=== PATIENT | female | born 1935 | race African-American/Black ===

== ENCOUNTER 2018-10-30 21:02 | Inpatient (IN) | payer OTHER ==
[~2018-10-30] VITALS: Ht 170.2 cm; Wt 42.8 kg
--- NOTE | ~2018-10-30 | HC ---
[facility] [place] [address] CONSULTATION Name: JAS GARCIA Room #: 205- ADM IN M.R.#: [id number] Admission: 10/30/18 ������������������ Attend Phys: Jesús Valentine MD Discharge: ������������������ Date of : 34 Report #: [id number] THIS REPORT FOR: //name// CC: Jesús ROTH unknown DATE OF SERVICE: 11/01/2018 HISTORY OF PRESENT ILLNESS: The patient is an 83-year-old -Venezuelan female with a history of hypertension, hyperlipidemia, COPD, who was admitted with an apparent episode of syncope. She had an elevated troponin. No aggressive intervention was warranted and Cardiology did not feel that it was reflecting a non-ST elevation NV. The patient had episodes of severe tachycardia, alternating with bradycardia. They did not feel that was tachybrady syndrome. She was treated for hypoxic acute respiratory failure. CT angio was without PE. She was noted to have generalized weakness and debilitation and we are seeing her in rehabilitation medicine consultation. PAST MEDICAL HISTORY: Includes hypertension, hypothyroidism, GERD, COPD, iron deficiency anemia, vitamin D deficiency and she has a history of dementia, age related. MEDICATIONS: Please see the full medication listing. HABITS: Former smoker, quit greater than a year ago. No history of alcohol abuse. SOCIAL HISTORY: Lives with daughter. Daughter reports 24-hour, 7-day a week assistance in the home. I am uncertain what gait aid the patient utilized premorbidly. REVIEW OF SYSTEMS: Did not offer any current complaints of chest pain, shortness of breath or abdominal discomfort. PHYSICAL EXAMINATION: GENERAL: An 83-year-old rather slender -Venezuelan female in no obvious distress. VITAL SIGNS: Last recorded temperature 97, pulse 69, respirations 18, blood pressure 109/76. NEUROLOGIC: She is alert, follows basic 1 step commands. Facies are symmetric. Functional range of motion of both upper extremities. Strength is grade 4-/5. DTRs are trace to 1. Lower extremities, no focal calf swelling, functional range of motion, strength is grade 4-/5. She is min assist with sit to stand with gait 120 feet, min assist with a front-wheeled walker. ASSESSMENT: An 83-year-old -[place]an female with the following problems: [address] [address] CONSULTATION Name: JAS GARCIA Room #: [facility] IN M.R.#: [id number] Admission: 10/30/18 ������������������ Attend Phys: Jesús Valentine MD Discharge: ������������������ Date of : 34 Report #: [id number] 1. Medical complexity with generalized debilitation. 2. Syncopal episode. 3. Mildly elevated troponin. 4. Acute hypoxic respiratory failure. 5. Chronic obstructive pulmonary disease. 6. Hypertension. 7. Hyperlipidemia. 8. Gastroesophageal reflux disease. 9. Hypothyroidism. PLAN: We are assessing candidacy for [address] [place] [address] Acute Inpatient Rehabilitation. We will be glad to follow along with you regarding her rehab therapy needs. ��������������������������������������������� ���������������������������������������� By: ��������������������������������������������� [id number] Maco Cruz MD /nt
[2018-10-30 21:04] VITALS: BP 136/82
[2018-10-30 21:30] LABS: ABSOLUTE NEUTROPHILS 5.7 thou/uL (1.4-8.2); BASOPHILS 0.7 % (0.0-2.0); EOSINOPHILS 0.3 % (0.0-3.0); HEMATOCRIT 31.5 % (37.0-47.0); HEMOGLOBIN 9.9 gm/dL (12.0-15.0); LYMPHOCYTES 9.8 % (24.0-44.0); MCH 24.1 pg (26.0-34.0); MCHC 31.3 g/dL (28.0-37.0); MONOCYTES 9.2 % (1.0-8.0); PLATELET COUNT 311 thou/uL (150-400); RDW 16.5 % (10.5-14.5); WBC 7.2 thou/uL (4.0-11.0)
[2018-10-30 21:32] LABS: CALCIUM 9.2 mg/dL (8.5-10.1); CREATININE 1.1 mg/dL (0.6-1.0); POTASSIUM 3.2 mmol/L (3.5-5.1)
[2018-10-30 21:53] LABS: TROPONIN-I 0.08 ng/mL (<0.06)
[2018-10-30] MEDS ORDERED: ASPIR 8181 MG PO (23:36)
[2018-10-30] MEDS ORDERED: BREO ELLIPTA 11 EACH INH (23:38)
[2018-10-30] MEDS ORDERED: VENTOLIN HFA 1818 GM INH (23:38)
[2018-10-30] MEDS ORDERED: CELEXA10 MG PO (23:38)
[2018-10-30] MEDS ORDERED: NORVASC5 MG PO (23:39)
[2018-10-30] MEDS ORDERED: LIPITOR10 MG PO (23:39)
[2018-10-31] VITALS (9 sets, daily range): BP systolic 98–158; BP diastolic 72–94
--- NOTE | 2018-10-31 02:37 | NUR ---
PT ADMITTED FROM ED AT APPROX 1AM. VSS. PT ALERT AND ORIENTED TO SELF, PLACE AND SITUATION. FAMILY (DAUGHTER/DPOA) AT BEDSIDE. ALL CONSENTS SIGNED INCLUDING RF INTERFERENCE EDUCATION SHEET. ADMISSION ASSESSMENT DONE, TELE STRIP FILED; PT WAS SR WITH SOME PVCs. ENRIQUE SCHOFIELD VISITED WITH PT ORDERED ONETIME DOSE OF KCL PER 3.2 K VALUE. ASPIRIN ALSO ADMINISTERED TO PT AT THIS TIME SINCE IT WASNT GIVEN IN THE ER. OTHER ADMISSION ORDERS RECIVED AND IMPLEMENTED. PT IS STABLE, SLEEPING AT THE MOMENT. NO COMPLAINTS OF RESPIRATORY DISTRESS OR PAIN. PT ON 2L NC WITH SATS OF 99%. PT IS VERY PLEASANT. WILL CONTINUE TO MONITOR PER POC.
[2018-10-31 03:17] LABS: MCH 24.6 pg (26.0-34.0); MCHC 32.2 g/dL (28.0-37.0); MCV 76.4 fL (80.0-100.0); RBC 3.66 mil/uL (4.20-5.00); RDW 16.6 % (10.5-14.5); WBC 5.8 thou/uL (4.0-11.0)
[2018-10-31 03:40] LABS: CALCIUM 8.9 mg/dL (8.5-10.1); CREATININE 0.7 mg/dL (0.6-1.0); POTASSIUM 3.1 mmol/L (3.5-5.1); TROPONIN-I 0.08 ng/mL (<0.06)
--- NOTE | 2018-10-31 09:36 | EKG ---
[address] [place] [address] ELECTROCARDIOGRAM REPORT Name: JAS GARCIA Room #: 205-P ADM IN M.R.#: [id number] ������������������ Admission: 10/30/18 ������������������ Attend Phys: Jesús Valentine MD Discharge: ������������������ Date of : 34 Report #: [id number] ����������������������������������������������������������������� [id number] THIS REPORT FOR: //name// [facility] ED Test Date: 2018-10-30 Test Time: 21:54:51 Pat Name: JAS GARCIA Department: Room: [facility] Gender: F Nuclear Medicine Chief Technologist: [email or web address] : 1935 Requested By: Juan Carlos Burnette Order Number: [id number] MD: Garry Jacobo Measurements Intervals [place] Rate: 72 P: 71 WI: 159 QRS: 17 QRSD: 85 T: 78 QT: 437 QTc: 479 Interpretive Statements Sinus rhythm Multiple ventricular premature complexes Left atrial enlargement Borderline low voltage, extremity leads Abnormal R-wave progression, early transition No previous ECG available for comparison Electronically Signed On 10-31-2018 9:36:13 CDT by Garry Jacobo [email or web address] ��������������������������������������������� <ELECTRONICALLY SIGNED> ���������������������������������������� By: Garry Jacobo MD ��������������������������������������������� 10/31/18 0936 53 53 Garry Jacobo MD /SIL
[2018-10-31] MEDS ORDERED: SYNTHROID88 MCG PO (13:30)
[2018-10-31] MEDS ORDERED: IRON325 PO (13:32)
--- NOTE | 2018-10-31 15:14 | NUR ---
PT A&OX TO SELF AND SITUATION, AMBULATES WITH ASSIST X 1. IV INTACT IN L FA AND R AC. O2 AT 2 L PER NC. DENIES ANY PAIN NO SYNCOPE NOTED TODAY. CT OF HEAD COMPLETEDTHIS AM. FAMILY AT BEDSIDE EARLIER. WILL CONT POC.
--- NOTE | 2018-10-31 17:30 | NUR ---
PT HAD EPISODES OF BRADYCARDIA AT [phone] THIS AM AND AGAIN AT 1300 TODAY. HR RATE INCREASED TO 123 WHILE UP WITH PT. DR. MCKEON NOTIFIED, CARDIAC CONSULT AND LABS ORDERED.
[2018-11-01 02:43] LABS: HEMATOCRIT 29.8 % (37.0-47.0); HEMOGLOBIN 9.4 gm/dL (12.0-15.0); MCH 24.3 pg (26.0-34.0); MCHC 31.6 g/dL (28.0-37.0); MCV 76.8 fL (80.0-100.0); RBC 3.88 mil/uL (4.20-5.00); RDW 16.9 % (10.5-14.5); WBC 4.6 thou/uL (4.0-11.0)
[2018-11-01 03:12] LABS: ALBUMIN 3.7 g/dL (3.4-5.0); CREATININE 0.7 mg/dL (0.6-1.0); MAGNESIUM 1.5 mg/dL (1.8-2.4); POTASSIUM 3.8 mmol/L (3.5-5.1); TOTAL BILIRUBIN 0.5 mg/dL (<0.1-1.0)
[2018-11-01 04:45] VITALS: BP 116/81
--- NOTE | 2018-11-01 04:47 | NUR ---
ASSUMED CARE AT 1900. PT AO X2. DENIES CHEST PAIN. NAUSEA OR VOMITING OR SOB. OTHER ASSESSMENTS DOCUMENTED. WILL CONTINUE WITH POC.
[2018-11-01 08:00] VITALS: BP 171/97
--- NOTE | 2018-11-01 09:32 | 2DMMODE ---
[facility] [address] [place] [address] 2 D/M-MODE ECHOCARDIOGRAM Name: JAS GARCIA Room #: 205-P ADM IN M.R.#: [id number] ������������� Admission: 10/30/18 ������������� Attend Phys: Jesús Valentine MD Discharge: ��� ������������� ��� Date of : 34 Date of Service: 11/01/18 0932 �� Report #: [id number] �������� ��������������������������������������������[id number] THIS REPORT FOR: //name// APPROVED REPORT Study performed: 11/01/2018 07:54:45 EXAM: Comprehensive 2D, Doppler, and color-flow Echocardiogram Patient Location: Bedside Room #: [facility] Status: routine BSA: 1.47 HR: 65 bpm BP: 116/81 mmHg Rhythm: NSR Other Information Study Quality: Adequate/low parasternal window Indications Syncope 2D Dimensions RVDd: 34.82 mm IVSd: 9.09 (7-11mm) LVOT Diam: 18.07 (18-24mm) LVDd: 30.82 mm PWd: 9.50 (7-11mm) Ascending Ao: 26.84 (22-36mm) LVDs: 19.89 (25-40mm) Aortic Root: 27.00 mm IVC: 17.00 mm Volumes Left Atrial Volume (Systole) Single Plane 4CH: 23.64 mL Single Plane 2CH: 26.86 mL LA ESV Index: 19.00 mL/m2 Aortic Valve AoV Peak Robb.: 1.07 m/s AO Peak Gr.: 4.62 mmHg LVOT Max P.31 mmHg LVOT Max V: 0.91 m/s CHLOÉ Vmax: 2.17 cm2 Mitral Valve E/A Ratio: 0.7 MV Decel. Time: 419.27 ms MV E Max Robb.: 0.66 m/s [facility] [address] [place] [address] 2 D/M-MODE ECHOCARDIOGRAM Name: JAS GARCIA Room #: [address] [place] [address] IN ..#: [id number] ������������� Admission: 10/30/18 ������������� Attend Phys: Jesús Valentine MD Discharge: ��� ������������� ��� Date of : 34 Date of Service: 11/01/18 0932 �� Report #: [id number] �������� ��������������������������������������������[id number] MV A Robb.: 0.92 m/s MV PHT: 121.59 ms IVRT: 147.64 ms Pulmonary Valve PV Peak Robb.: 0.86 m/s PV Peak Gr.: 2.94 mmHg Tricuspid Valve TR Peak Orbb.: 3.60 m/s RAP Estimate: 5.00 mmHg TR Peak Gr.: 51.71 mmHg PA Pressure: 57.00 mmHg Left Ventricle The left ventricle is normal size. There is normal left ventricular wall thickness. The left ventricular systolic function is normal. The left ventricular ejection fraction is within the normal range. LVEF is 60-65%. Mild diastolic dysfunction is present (impaired relaxation pattern). Right Ventricle The right ventricle is normal size. The right ventricular systolic function is normal. Atria The left atrium size is normal. The right atrium size is normal. Aortic Valve The Aortic valve is sclerotic. No aortic regurgitation is present. There is no aortic valvular stenosis. Mitral Valve Mild mitral annular calcification. Mitral valve leaflets are mildly thickened. There is no mitral valve regurgitation noted. No evidence of mitral valve stenosis. Tricuspid Valve The tricuspid valve is normal in structure. Moderate to severe tricuspid regurgitation. PAP is estimated at 57 mmHg. Pulmonic Valve Pulmonic valve is not well visualized. Great Vessels The aortic root is normal in size. Aortic arch is not well visualized. IVC is normal in size and collapses >50% with [facility] [address] [place] [address] 2 D/M-MODE ECHOCARDIOGRAM Name: JAS GARCIA Room #: [address] [place] [address] IN M.R.#: [id number] ������������� Admission: 10/30/18 ������������� Attend Phys: Jesús Valentine MD Discharge: ��� ������������� ��� Date of : 34 Date of Service: 11/01/18 0932 �� Report #: [id number] �������� ��������������������������������������������[id number] inspiration. Pericardium There is no pericardial effusion. <Conclusion> The left ventricle is normal size. There is normal left ventricular wall thickness. The left ventricular systolic function is normal. Mild diastolic dysfunction is present (impaired relaxation pattern). The right ventricle is normal size. The left atrium size is normal. The Aortic valve is sclerotic. Mild mitral annular calcification. Mitral valve leaflets are mildly thickened. Moderate to severe tricuspid regurgitation. PAP is estimated at 57 mmHg. ��������������������������������������������� <ELECTRONICALLY SIGNED> ���������������������������������������� By: Garry Jacobo MD ��������������������������������������������� 11/01/18931 1 1 Garry Jacobo MD /INF
[2018-11-01 12:00] VITALS: BP 109/76
[2018-11-01] MEDS ORDERED: ACETAMINOPHEN325 M1 PO (12:02)
[2018-11-01] MEDS ORDERED: K-DUR 20 MEQ T20 MEQ PO (12:02)
--- NOTE | 2018-11-01 13:48 | NUR ---
met with patient and spoke with dtr. Patient resides at home with dtr. Dtr reports / supervision in home. patient has a walker and sometimes uses walker and other times does not. Dtr assists with adls of bathing and does cooking. Patient with hx of demetia. Discussed post acute care. Dtr reports patient has been at [facility] in past and agreeable for eval for skilled and also eval for acute rehab 5n.
[2018-11-01 16:00] VITALS: BP 111/67
[2018-11-01 20:15] VITALS: BP 119/69
--- NOTE | 2018-11-01 20:37 | NUR ---
PATIENT OREIENTED TO SELF AND LOCATION AND PLEASANT WITH MEMORY ISSUES. SPOKE WITH CHANDA ON PHONE WHOM PATIENT LIVES WITH AND ALSO SPOKE WITH SON WHO STOPPED BY BEDSIDE. PATIENT WALKED WITH PT IN HALLWAY AND IS BEING EVALUATED FOR THE REHAB UNIT OR POSSIBLY SNF. PATIENT ENJOYS DRINKING THE ENSURE BUT DOESN'T EAT MUCH OF HER FOOD TRAY.
[2018-11-02 04:45] VITALS: BP 151/93
--- NOTE | 2018-11-02 06:49 | NUR ---
patients care was assumed at shift change. patient was assessed and meds were passed. patient continued to refues the aide putting her to bed. with RN assist patient was refreshed and put into bed about 0100. patient did sleep the rest of the shift with no requests or events. hourly rounding was done. the bed is in a low and locked position.
[2018-11-02 07:56] VITALS: BP 141/91
--- NOTE | 2018-11-02 14:08 | NUR ---
patient accepted to [facility] and [facility] discussed with dtr options and she prefers 5n, updated 5N liason.
--- NOTE | 2018-11-02 15:10 | NUR ---
Assumed pt care at 7am.Pt in bed laert and orineted to self and person. Assessment completed.vss.Assisted pt with tray setup at breakfast.Pt refused breakfast and meds.Dtr called,she came and encouraged pt to take med but still refused.Dr Jacobo here,no new order.Dc order noted from Dr Valentine.Report off to Cherry kearney on rehab.At 1515,pt dc to rehab per wc accompanied by volunteer.
== END 2018-11-02 15:12 | DRG 189 ==
LOC: ER 21:02 → EROBS 23:13 → 2N 23:13 → ENTRNSPT 11-02 14:48 → EDTRNSPTSTS 11-02 14:50 → 2N 11-02 15:12
PROVIDERS: Emergency Medicine; Nurse Practitioner Family; ADMIT Internal Medicine
DX: J96.01 Acute respiratory failure with hypoxia (principal); E43 Unspecified severe protein-calorie malnutrition; Z68.1 Body mass index [BMI] 19.9 or less, adult; I10 Essential (primary) hypertension; E78.5 Hyperlipidemia, unspecified; J44.9 Chronic obstructive pulmonary disease, unspecified; R55 Syncope and collapse; F32.9 Major depressive disorder, single episode, unspecified; F03.90 Unspecified dementia, unspecified severity, without behavioral disturbance, psychotic disturbance, mood disturbance, and anxiety; E03.9 Hypothyroidism, unspecified; K21.9 Gastro-esophageal reflux disease without esophagitis; D50.9 Iron deficiency anemia, unspecified; Z66 Do not resuscitate; E83.42 Hypomagnesemia; I07.1 Rheumatic tricuspid insufficiency; Z79.899 Other long term (current) drug therapy; Z79.82 Long term (current) use of aspirin; Z87.891 Personal history of nicotine dependence
CPT/HCPCS: 10081

== ENCOUNTER 2018-11-02 13:23 | Inpatient (IN) | payer OTHER ==
[~2018-11-02] VITALS: Ht 177.8 cm; Wt 41.3 kg
[~2018-11-02 13:23] MED LIST: ACETAMINOPHEN325 M1 PO; ASPIR 8181 MG PO; BREO ELLIPTA 11 EACH INH; CELEXA10 MG PO; IRON325 PO; K-DUR 20 MEQ T20 MEQ PO; LIPITOR10 MG PO; NORVASC5 MG PO; SYNTHROID88 MCG PO; VENTOLIN HFA 1818 GM INH
[2018-11-02 15:20] VITALS: BP 131/78
[2018-11-02 20:06] VITALS: BP 120/87
[2018-11-03 05:41] LABS: HEMATOCRIT 28.9 % (37.0-47.0); HEMOGLOBIN 9.3 gm/dL (12.0-15.0); MCH 24.8 pg (26.0-34.0); MCHC 32.3 g/dL (28.0-37.0); MCV 76.6 fL (80.0-100.0); RBC 3.77 mil/uL (4.20-5.00); RDW 16.5 % (10.5-14.5); WBC 5.4 thou/uL (4.0-11.0)
[2018-11-03 05:49] LABS: CALCIUM 9.6 mg/dL (8.5-10.1); CREATININE 0.6 mg/dL (0.6-1.0); POTASSIUM 3.8 mmol/L (3.5-5.1)
[2018-11-03 08:28] VITALS: BP 115/83
[2018-11-03 11:03] VITALS: BP 115/83
[2018-11-03 20:32] VITALS: BP 113/76
[2018-11-04 09:06] VITALS: BP 141/80
[2018-11-04 09:07] VITALS: BP 89/61
[2018-11-04 09:09] VITALS: BP 93/69
[2018-11-04 19:52] VITALS: BP 96/72
[2018-11-05 06:48] LABS: HEMATOCRIT 30.3 % (37.0-47.0); HEMOGLOBIN 9.7 gm/dL (12.0-15.0); MCH 24.2 pg (26.0-34.0); MCHC 31.9 g/dL (28.0-37.0); MCV 75.9 fL (80.0-100.0); RBC 3.99 mil/uL (4.20-5.00); RDW 17.1 % (10.5-14.5); WBC 5.1 thou/uL (4.0-11.0)
[2018-11-05 07:30] VITALS: BP 138/89
[2018-11-05 19:15] LABS: URINE BILIRUBIN NEGATIVE (Negative); URINE BLOOD NEGATIVE (Negative); URINE CLARITY CLEAR; URINE COLOR YELLOW; URINE GLUCOSE-RANDOM* NEGATIVE (Negative); URINE KETONES TRACE (Negative); URINE NITRITE-REFLEX NEGATIVE (Negative); URINE PROTEIN (DIPSTICK) 1+ (Negative); URINE SPECIFIC GRAVITY 1.025 (1.005-1.035)
[2018-11-05 19:15] LABS: HEMATOCRIT 30.6 % (37.0-47.0); HEMOGLOBIN 9.8 gm/dL (12.0-15.0); MCH 24.5 pg (26.0-34.0); MCV 76.5 fL (80.0-100.0); RDW 17.3 % (10.5-14.5); WBC 6.2 thou/uL (4.0-11.0)
[2018-11-05 19:27] LABS: ALBUMIN 4.1 g/dL (3.4-5.0); CALCIUM 9.8 mg/dL (8.5-10.1); CREATININE 0.7 mg/dL (0.6-1.0); MAGNESIUM 1.8 mg/dL (1.8-2.4); POTASSIUM 4.1 mmol/L (3.5-5.1); TOTAL BILIRUBIN 0.3 mg/dL (<0.1-1.0); TOTAL PROTEIN 7.9 g/dL (6.4-8.2)
[2018-11-05 19:29] LABS: URINE LEUKOCYTES-REFLEX 2+ (Negative)
[2018-11-05 19:37] LABS: SQUAMOUS 0-3 Few /LPF (0-3)
[2018-11-05 19:38] LABS: BACTERIA-REFLEX 1-9 Few /HPF (None Seen); CRYSTALS None Seen /LPF (None Seen); HYALINE CASTS 0-3 Few /LPF (None Seen); URINE RBC None Seen /HPF (0-2)
[2018-11-05 21:08] VITALS: BP 94/59
[2018-11-06 07:55] VITALS: BP 122/68
[2018-11-06 19:13] VITALS: BP 91/70
[2018-11-07 08:15] VITALS: BP 144/86
[2018-11-07 19:22] VITALS: BP 134/74
[2018-11-08 08:00] VITALS: BP 131/80
--- NOTE | 2018-11-08 17:06 | PATH ---
[facility] [address] [place] [address] PATHOLOGY RPT PROCEDURE Name: LON BAILEY Room #: 514-P ADM IN M.R.#: [id number] ������������������ Admission: 11/02/18 ������������������ Date of : 34 Discharge: Report #: [id number] Path Case #: [id number] [facility] Accession Number: [id number] . 01 Material submitted: . stomach - GASTRIC BX R/O H. PYLORI . 01 Clinical history: . Pre-OP DX: Heme positive stool, anemia Post-OP DX: Gastritis, AVM . 02 Diagnosis: Gastric mucosa, gastric, rule out H. 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 - Negative for dysplasia. - Helicobacter pylori immunohistochemical stain performed showing numerous organisms (properly controlled). (IUV:pit 11/08/2018) QTP/11/08/2018 . 02 Electronically signed: . Ada Landaverde MD, Pathologist NPI- [id number] . 01 Gross description: . Received in formalin labeled "Lon Bailey, gastric BX," are multiple segments of ochoa soft tissue measuring 1.2 x 0.5 x 0.1 cm in aggregate dimensions. The specimen is filtered and entirely submitted in cassette A1. (TSD; 11/07/2018) TOB/TOB . 02 Pathologist provided ICD-10: K29.70, B96.81 . 02 CPT . 695781, G30402 Specimen Comment: A courtesy copy of this report has been sent to Specimen Comment: [phone]. Specimen Comment: Report sent to Performed at: [address] [id number] MD Devyn Tate MD Phone: [phone] Performed at: 02 [facility] [address] [place] [address] PATHOLOGY RPT PROCEDURE Name: LON BAILEY Room #: 514-P ADM IN ..#: [id number] ������������������ Admission: 11/02/18 ������������������ Date of : 34 Discharge: Report #: [id number] Path Case #: [id number] [address] [place] [id number] MD Ada Landaverde MD Phone: [phone]
[2018-11-08 19:58] VITALS: BP 111/78
[2018-11-09 10:33] VITALS: BP 111/68
[2018-11-09 19:15] VITALS: BP 122/74
[2018-11-10] MEDS ORDERED: PROTONIX 20 MG20 M1 PO (08:08)
[2018-11-10 09:11] VITALS: BP 102/79
[2018-11-10 09:17] VITALS: BP 102/79
[2018-11-10 10:32] VITALS: BP 102/79
--- NOTE | 2018-11-10 12:22 | H ---
[facility] [place] [address] HISTORY AND PHYSICAL Name: JAS GARCIA Room #: 514-P ADM IN M.R.#: [id number] Admission: 11/02/18 ������������������ Attend Phys: Maco Cruz MD Discharge: ������������������ Date of : 34 Report #: [id number] THIS REPORT FOR: //name// CC: Maco Cruz [facility] unknown DATE OF SERVICE: 11/02/2018 HISTORY AND PHYSICAL/POSTADMISSION PHYSICIAN EVALUATION HISTORY OF PRESENT ILLNESS: The patient is an 83-year-old -Thai female with history of hypertension, hyperlipidemia, COPD, originally admitted on 10/30/2018 with an apparent episode of syncope. She had an elevated troponin. No aggressive intervention was warranted and flash oven operator did not feel that it was reflecting a non-ST elevation MA. She did, however, have episodes of severe tachycardia alternating with bradycardia. They did not feel that was tachybrady syndrome. She was treated for hypoxic acute respiratory failure. CT angio was without PE. She is noted to have significant generalized weakness and functional decline from her premorbid status. She does have medical complexity as noted above. She has now been admitted for acute in-hospital inpatient rehabilitation. PAST MEDICAL HISTORY: Includes hypertension, hypothyroidism, GERD, COPD, iron deficiency anemia, vitamin D deficiency, history of dementia, age related. MEDICATIONS: Please see the full medication listing, this includes vitamins, herbals, and supplements per report. HABITS: Former smoker, quit greater than a year ago. No history of alcohol abuse. SOCIAL HISTORY: Lives with her daughter. Family reports 24-hour, 7-day a week assistance at home. It is uncertain what gait-aid the patient utilized premorbidly. REVIEW OF SYSTEMS: No complaints of chest pain, shortness of breath, abdominal discomfort. No complaints of fever or chills. PHYSICAL EXAMINATION: GENERAL: The patient was seen earlier, 83-year-old, slender, -Thai female in no obvious distress. She was sleepy, but would easily arouse. She will follow basic 1-step commands. She needs encouragement as far as taking her medications when this was undertaken by nursing. VITAL SIGNS: Temperature 36.4, pulse 92, respirations 16, blood pressure 115/83. CHEST: Sounded clear to auscultation. [address] [address] HISTORY AND PHYSICAL Name: JAS GARCIA Room #: 514-P [facility] IN M.R.#: [id number] Admission: 11/02/18 ������������������ Attend Phys: Maco Cruz MD Discharge: ������������������ Date of : 34 Report #: [id number] CARDIAC: Sounded regular rate and rhythm with occasional extra beats. ABDOMEN: Bowel sounds positive, nontender. GENITOURINARY AND RECTAL: Deferred. NEUROMUSCULOSKELETAL: She is alert and oriented x 2. Functional range of motion of the upper and lower extremities. I would grade her strength at a 4-/5. DTRs are trace to 1. She has been min assist with transfers and short distance walker ambulation. ASSESSMENT: 1. Medical complexity with generalized debilitation. 2. Syncopal episode. 3. Mildly elevated troponin. 4. Acute hypoxic respiratory failure. 5. Chronic obstructive pulmonary disease. 6. Hypertension. 7. Hyperlipidemia. 8. Gastroesophageal reflux disease. 9. Hypothyroidism. PLAN: The patient is being admitted for acute in-hospital inpatient rehabilitation. From a postadmission physician evaluation perspective, there are no relevant changes since the preadmission screening. Please see the above review of prior and current medical and functional conditions and comorbidities. Please see the patient's previous and current functional status. As far as risk of complications, the patient has multiple medical comorbidities as noted above. The initial plan of care involves the interdisciplinary acute inpatient rehabilitation program with the goal of maximizing the patient's functional independence, so she can hopefully return back to her prior living situation. Measurable functional goals would be for the patient to become modified independent with transfers, mobility, ADLs, so she can hopefully return back home. She does have significant assistance at home. Prognosis is reasonably good with the estimated length of stay probably at least 7-10 days and likely longer as warranted. Potential barriers would include her multiple medical comorbidities and decreased functional status. The patient meets diagnostic criteria for an acute in-hospital inpatient rehabilitation stay. She meets the medical necessity criteria and we will have the multiple consultants continue to follow. She does have the tolerance for therapies and has appropriate discharge goals back to the home setting. ��������������������������������������������� <ELECTRONICALLY SIGNED> ���������������������������������������� By: Maco Cruz MD ��������������������������������������������� 11/10/18 1222 1101 1115 Maco Cruz MD /nt
--- NOTE | 2018-11-10 12:22 | PLAN ---
[facility] [place] [address] REHAB UNIT PLAN OF CARE Name: JAS GARCIA Room #: 514-P ADM IN M.R.#: [id number] Admission: 11/02/18 ������������������ Attend Phys: Maco Cruz MD Discharge: ������������������ Date of : 34 Report #: [id number] THIS REPORT FOR: //name// CC: Maco Cruz [facility] unknown DATE OF SERVICE: 11/04/2018 PROGRESS NOTE/OVERALL PLAN OF CARE SUBJECTIVE: The patient is seen back today in followup. She was in no distress. Temperature 97.6, pulse 84, respirations 18, blood pressure 113/76. She is working in therapies with transfers, mod assist. Gait min assist 50 feet front-wheeled walker. She is going up 4 stairs with mod assist. In occupational therapy, lower body dressing is min assist. In speech therapy, she has moderate comprehensive deficits. She is noted to have moderate to severe cognitive deficits with severe memory deficits. ASSESSMENT: 1. Medical complexity with generalized debilitation. 2. Syncopal episode. 3. Mildly elevated troponin. 4. Acute hypoxic respiratory failure. 5. Chronic obstructive pulmonary disease. 6. Hypertension. 7. Hyperlipidemia. 8. Gastroesophageal reflux disease. 9. Hypothyroidism. PLAN: The overall plan of care is based on the preadmission screen, post-admission physician evaluation and information garnered from therapy assessments. 1. Estimated length of stay is probably at least 7-10 days and likely longer. 2. Medical prognosis is reasonably good. 3. Anticipated interventions includes the interdisciplinary acute inpatient rehabilitation program. 4. Anticipated functional outcomes would be for the patient to hopefully return to her prior functional level where she can go back home with her family. They do provide around the clock assistance per report. The patient did have walker with a seat, a cane and a shower chair. 5. Discharge destination would be back home with daughter. 6. Expected therapy by discipline includes PT, OT and speech 1 hour per day [address] [address] REHAB UNIT PLAN OF CARE Name: JAS GARCIA Room #: 514-P [facility].#: [id number] Admission: 11/02/18 ������������������ Attend Phys: Maco Cruz MD Discharge: ������������������ Date of : 34 Report #: [id number] each five days a week throughout the duration of the acute inpatient rehabilitation stay. ��������������������������������������������� <ELECTRONICALLY SIGNED> ���������������������������������������� By: Maco Cruz MD ��������������������������������������������� 11/10/18 1222 0903 0124 Maco Cruz MD /nt
--- NOTE | 2018-11-14 21:35 | HC ---
[facility] [place] [address] CONSULTATION Name: JAS GARCIA Room #: 514-P [facility] M.R.#: [id number] Admission: 11/02/18 ������������������ Attend Phys: Maco Cruz MD Discharge: 11/10/18 ������������������ Date of : 33 Report #: [id number] THIS REPORT FOR: //name// CC: Maco Cruz [facility] unknown DATE OF SERVICE: 11/05/2018 NEUROBEHAVIORAL STATUS EXAM: ATTENDING PHYSICIAN: Maco Cruz MD. DIDACTIC INSTRUCTOR: Denver Cheung, PhD. CLINICAL PRESENTATION: The patient is an 83-year-old female admitted to the rehabilitation unit at [facility] for comprehensive inpatient rehabilitation program. Her assessment on admission to rehab included medical complexity with generalized debilitation, syncopal episode, mildly elevated troponin, acute hypoxic respiratory failure, COPD, hypertension, hyperlipidemia, gastroesophageal reflux disease, and hypothyroidism. A complete description of her medical condition and history can be found in her medical record. Neuropsychological consultation was requested to provide assistance in the assessment of cognitive and emotional status and to provide recommendations and services. Prior to this most recent admission, the patient was living with her daughter, son-in-law and grandson. She is reported to have required assistance with instrumental activities of daily living including aspects of dressing and grooming. The patient was confused and disoriented during the interview. She was unable to indicate the reason for her hospitalization. She has 2 children. Her daughter indicated that the patient has had dementia for several years. 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 The patient was unable to indicate the type of work she had done and did not remember the number of her children. TECHNIQUES UTILIZED: Clinical interview, review of medical records, staff consultation and behavioral observation, family interview -- daughter and mini mental status exam 2 standard version. EXAMINATION FINDINGS: The patient was drowsy and required frequent reorientation during the assessment. She was unable to accurately describe her current symptoms, the reason for her hospitalization and the purpose of treatment. There is no reported difficulty with sleep. Her emotional state is reported as within normal limits without evidence of anxiety or depression. Appetite is reduced. [facility] [address] [place] [address] CONSULTATION Name: JAS GARCIA Room #: 514-P [facility] M.R.#: [id number] Admission: 11/02/18 ������������������ Attend Phys: Maco Cruz MD Discharge: 11/10/18 ������������������ Date of : 33 Report #: [id number] Performance on the MMSE 2 brief version was extremely low with a raw score of 2/16. She was 0/3 for initial registration, 0/5 for orientation to time and 2/[address]. She was 0/3 for immediate recall of 3 items after a brief time delay and distraction. The patient was 2/2 for naming. She was unable to write a sentence or copy a simple geometric design. Auditory comprehension was very poor. The patient is presenting with severe deficits in cognition. Her daughter indicates her having had dementia that had been slowly progressing with a more rapid deterioration within the last year. DIAGNOSTIC IMPRESSION: Delirium, hypoactive, Acute Major neurocognitive disorder (dementia), possibly due to Alzheimer's disease, without behavior disorder -- extent to be determined, likely severe. RECOMMENDATIONS: The patient may benefit from treatment for neurodegnerative disorder that includes Namenda and Aricept. She will continue to require 24-hour care that includes assistance in the management of medication, nutrition and finances. Medication that has an adverse effect on cognition should be minimized as medically appropriate. Upon resolution of delirium, a more thorough neuropsych assessment to clarify the severity of her cognitive disorder may be helpful. Thank you very much for allowing me to provide the consultation on this patient. ��������������������������������������������� <ELECTRONICALLY SIGNED> ���������������������������������������� By: Denver Cheung, PhD ��������������������������������������������� 11/14/18 [id number] Denver Cheung, PhD /nt
== END 2018-11-10 12:50 | disposition home health service (06) | DRG 189 ==
LOC: ENTRNSPT 11-10 12:40 → EDTRNSPTSTS 11-10 12:42
PROVIDERS: Internal Medicine; Nurse Practitioner; ADMIT Physical Medicine & Rehabilitation
PROC: 0DB78ZX Excision of Stomach, Pylorus, Via Natural or Artificial Opening Endoscopic, Diagnostic (ICD-10-PCS; principal; 2018-11-07)
DX: J96.01 Acute respiratory failure with hypoxia (principal); R55 Syncope and collapse; F01.50 Vascular dementia, unspecified severity, without behavioral disturbance, psychotic disturbance, mood disturbance, and anxiety; I10 Essential (primary) hypertension; E78.5 Hyperlipidemia, unspecified; J44.9 Chronic obstructive pulmonary disease, unspecified; R00.0 Tachycardia, unspecified; R00.1 Bradycardia, unspecified; R53.1 Weakness; E03.9 Hypothyroidism, unspecified; K21.9 Gastro-esophageal reflux disease without esophagitis; R53.81 Other malaise; D50.9 Iron deficiency anemia, unspecified; F32.9 Major depressive disorder, single episode, unspecified; Z66 Do not resuscitate; H91.90 Unspecified hearing loss, unspecified ear; R79.89 Other specified abnormal findings of blood chemistry; K29.70 Gastritis, unspecified, without bleeding; K31.819 Angiodysplasia of stomach and duodenum without bleeding; R41.9 Unspecified symptoms and signs involving cognitive functions and awareness; Z79.899 Other long term (current) drug therapy; Z87.891 Personal history of nicotine dependence; Q27.33 Arteriovenous malformation of digestive system vessel
CPT/HCPCS: 10112; 62110; 62900; 70005

== ENCOUNTER 2018-11-28 08:25 | Inpatient (IN) | payer OTHER ==
[~2018-11-28] VITALS: Ht 170.2 cm; Wt 42.6 kg
[~2018-11-28 08:25] MED LIST changes: +PROTONIX 20 MG20 M1 PO
--- NOTE | 2018-11-28 08:30 | NUR ---
PT'S GRANDSON EXPLAINS THAT PT HAD A SYNCOPAL EPISODE THIS AM WHILE ON THE TOILET. PT THEN SEEMED TIRED. REPORTS SHE APPEARS BACK TO HER BASELINE
[2018-11-28 08:53] LABS: URINE BILIRUBIN NEGATIVE (Negative); URINE BLOOD NEGATIVE (Negative); URINE CLARITY CLEAR; URINE COLOR YELLOW; URINE GLUCOSE-RANDOM* NEGATIVE (Negative); URINE KETONES NEGATIVE (Negative); URINE LEUKOCYTES-REFLEX NEGATIVE (Negative); URINE NITRITE-REFLEX NEGATIVE (Negative); URINE PROTEIN (DIPSTICK) 2+ (Negative); URINE SPECIFIC GRAVITY >= 1.030 (1.005-1.035)
[2018-11-28 09:07] LABS: BACTERIA-REFLEX 1-9 Few /HPF (None Seen); CRYSTALS None Seen /LPF (None Seen); HYALINE CASTS 0-3 Few /LPF (None Seen); SQUAMOUS 0-3 Few /LPF (0-3); URINE RBC None Seen /HPF (0-2); URINE WBC-REFLEX None Seen /HPF (0-5)
--- NOTE | 2018-11-28 09:57 | EKG ---
[facility] [place] [address] ELECTROCARDIOGRAM REPORT Name: JAS GARCIA [id number] ������������������ Admission: 11/28/18 ������������������ Attend Phys: Discharge: ������������������ Date of : 33 Report #: [id number] ����������������������������������������������������������������� [id number] THIS REPORT FOR: //name// [facility] ED Test Date: 2018-11-28 Test Time: 09:28:06 Pat Name: JAS GARCIA Department: Room: Gender: F Laboratory Technologist: : 1935 Requested By: Judah Cannon Order Number: [id number] MD: Beni Vasquez Measurements Intervals [place] Rate: 56 P: 71 OR: 165 QRS: 16 QRSD: 86 T: 76 QT: 475 QTc: 459 Interpretive Statements Sinus bradycardia Biatrial enlargement Nonspecific ST segment abnormality Abnormal R-wave progression, early transition Compared to ECG 10/30/2018 21:54:51 Ventricular premature complex(es) no longer present Electronically Signed On 11-28-2018 9:57:39 CDT by Beni Vasquez [email or web address] ��������������������������������������������� <ELECTRONICALLY SIGNED> ���������������������������������������� By: Beni Vasquez MD, [facility] ��������������������������������������������� 11/28/18 0957 7 Beni Vasquez MD, [facility] /EPI
[2018-11-28 09:59] LABS: ABSOLUTE NEUTROPHILS 3.4 thou/uL (1.4-8.2); BASOPHILS 1.3 % (0.0-2.0); EOSINOPHILS 0.6 % (0.0-3.0); HEMATOCRIT 31.9 % (37.0-47.0); HEMOGLOBIN 9.9 gm/dL (12.0-15.0); MCH 23.6 pg (26.0-34.0); MCV 76.1 fL (80.0-100.0); MONOCYTES 8.5 % (1.0-8.0); PLATELET COUNT 295 thou/uL (150-400); POLYS 78.6 % (36.0-66.0); RBC 4.19 mil/uL (4.20-5.00); RDW 18.3 % (10.5-14.5); WBC 4.3 thou/uL (4.0-11.0)
[2018-11-28 10:16] LABS: CALCIUM 9.4 mg/dL (8.5-10.1); MAGNESIUM 1.6 mg/dL (1.8-2.4); TROPONIN-I 0.09 ng/mL (<0.06)
[2018-11-28 10:18] LABS: POTASSIUM 2.9 mmol/L (3.5-5.1)
[2018-11-28] MEDS ORDERED: AMOXICILLIN 50500 MG PO (11:18)
[2018-11-28] MEDS ORDERED: BIAXIN 500 MG500 M2 PO (11:19)
[2018-11-28] MEDS ORDERED: OMEPRAZOLE40 MG PO (11:20)
[2018-11-28 11:37] VITALS: BP 129/85
[2018-11-28 12:24] LABS: ANISOCYTOSIS 2+; HYPOCHROMASIA 1+; PLATELET ESTIMATE NORMAL
--- NOTE | 2018-11-28 13:00 | NUR ---
PT'S K+ INFUSION COMPLETE, UPON ASSESSMENT IV HAS INFILTRATED. LEFT ARM IV DC'D, WARM COMPRESS PLACED, CALL TO DR CAMARENA
--- NOTE | 2018-11-28 15:23 | NUR ---
DR CAMARENA CALLS, UPDATED ON PT'S STATUS
[2018-11-28 15:37] VITALS: BP 147/90
[2018-11-28 16:10] VITALS: BP 143/94
--- NOTE | 2018-11-28 18:37 | NUR ---
ASSUMED CARE OF PT AT APPROX. 1600. PT IS ORIENTATED TO PERSON AND PLACE. SOME CONFUSION AND FORGETFULNESS. HX OF DEMENTIA. NSR ON TELE. 98% ON RA. PT RECEIVED FROM ED WHERE SHE REPORTED WITH INCREASED CONFUSION AND WEAKNESS. FOUND TO HAVE LOW MG AND CRITICALLY LOW K. PT'S GRANDSON WAS AT BEDSIDE FOR HALF OF ADMISSION INFORMATION. WAS ABLE TO VERIFY MEDICATIONS WITH MED LIST AT HOME WITH PT'S DAUGHTER. CONSENTS SIGNED. PT NOT YET PROGRESSING TOWARD. WILL CONTINUE TO MONITOR AND ASSESS.
[2018-11-28 19:00] VITALS: BP 129/77
[2018-11-29 04:13] LABS: HEMATOCRIT 28.5 % (37.0-47.0); HEMOGLOBIN 9.1 gm/dL (12.0-15.0); MCH 24.1 pg (26.0-34.0); MCHC 31.8 g/dL (28.0-37.0); MCV 75.7 fL (80.0-100.0); RBC 3.76 mil/uL (4.20-5.00); RDW 18.5 % (10.5-14.5); WBC 4.4 thou/uL (4.0-11.0)
[2018-11-29 04:18] LABS: CALCIUM 9.2 mg/dL (8.5-10.1); CREATININE 0.8 mg/dL (0.6-1.0); MAGNESIUM 2.5 mg/dL (1.8-2.4)
[2018-11-29 04:20] VITALS: BP 121/82
[2018-11-29 04:20] LABS: POTASSIUM 3.9 mmol/L (3.5-5.1)
--- NOTE | 2018-11-29 05:32 | NUR ---
FOLLOWING POC WITH K+ REPLACEMENT. AM LABS SHOW K+ WITHIN NORMAL LIMITS. VSS WITH NO COMPLAINTS OF PAIN. GRANDSON ROOMING IN OVERNIGHT. PT WILL TAKE PILLS WHOLE ORALLY. PT A/0 X2 TO PERSON AND PLACE. HOURLY ROUNDING.
[2018-11-29 07:35] VITALS: BP 135/96
--- NOTE | 2018-11-29 08:31 | NUR ---
Nutrition: Pt admit with generalized weakness after fall. Dx: hypokalemia, hypomagnesium. Wt stable from wt during admit first week of November; was 91-98 lb. No prior wt hx known, underweight w/ BMI 14.7. No intake records. Pt received Ensure last admit which she liked. BUN 19, Mg 2.5, K now WNL. Assessed at mild nutrition risk at this time. Will order Ensure BID.
--- NOTE | 2018-11-29 10:30 | NUR ---
ASSESSMENT: CM REVIEWED CHART AND MET WITH PATIENT AT THE BEDSIDE. PT WAS ADMITTED WITH HYPOKALEMIA. CM CONTACTED PATIENTS DAUGHTER CHANDA TO GET INFORMATION PATIENT IS CONFUSED. PT LIVES AT HOME WITH HER DAUGHTER CHANDA AND HER . PT USES A WALKER FOR AMBULATION. PT HAS A GRAB BAR AND SHOWER CHAIR AT HOME AND IS CURRENTLY IN SERVICES WITH [facility]. PT WAS RECENTLY DISCHARGE FROM ACUTE REHAB. CM DISCUSSED ROLE. DAUGHTER REPORTS PATIENT WAS ALSO A LCCG IN THE PAST AND IF PATIENT IS NEEDING SNF AT DISCHARGE THAT IS WHERE SHE PREFERS SHE GOES AND WOULD WANT A REFERRAL THERE. PT/OT EVALS PENDING. CM WILL CONTINUE TO FOLLOW TO ASSIST NEEDED.
--- NOTE | 2018-11-29 15:40 | NUR ---
Discharge Planning: dp faxed initial referral to [facility], patient likely to discharge in 2 days. DP contacted Aidee/admissions to let her know to expect the referral.
[2018-11-29 16:32] VITALS: BP 137/79
--- NOTE | 2018-11-29 18:26 | NUR ---
PATIENT ALERT AND ORIENTED TO SELF. DAUGHTER, CHANDA, AT BEDSIDE THIS AFTERNOON AND BROUGHT FOOD TO ENCOURAGE EATING. PATIENT UP TO CHAIR MOST OF THE DAY AND ENJOYS WATCHING TV. DAUGHTER IS OPEN TO PATIENT GETTING STREGTHENING IN PHYSICAL REHAB. PATIENT EATS POORLY, BUT LIKES ENSURE STRAWBERRY AND DESERTS ON MEAL TRAY.
[2018-11-29 19:19] VITALS: BP 148/86
[2018-11-30 04:27] VITALS: BP 143/92
[2018-11-30 05:57] LABS: HEMATOCRIT 30.4 % (37.0-47.0); HEMOGLOBIN 9.5 gm/dL (12.0-15.0); MCH 23.7 pg (26.0-34.0); MCHC 31.1 g/dL (28.0-37.0); MCV 76.4 fL (80.0-100.0); RBC 3.98 mil/uL (4.20-5.00); RDW 18.7 % (10.5-14.5); WBC 5.3 thou/uL (4.0-11.0)
[2018-11-30 06:36] LABS: FOLIC ACID 12.9 ng/mL (8.6-58.9)
[2018-11-30 07:38] VITALS: BP 145/96
--- NOTE | 2018-11-30 12:07 | NUR ---
on-going assessment: CM REVIEWED CHART AND SPOKE WITH PATIENTS DAUGHTER. PLANS ARE FOR PATIENT TO DISCHARGE TOMORROW TO [facility]. YELITZA SPOKE WITH JOSE AT [facility] WHO STATES THEY CAN ACCEPT TOMORROW.
[2018-11-30 15:42] VITALS: BP 132/98
[2018-11-30 20:00] VITALS: BP 126/92
--- NOTE | 2018-11-30 20:09 | NUR ---
PATIENT ORENTED TO SELF AND LOCATION AND NEEDS ENCOURAGEMENT TO EAT. PATIENT LIKES ENSURE STRAWBERRY FLAVOR. DPOA, DAUGHTER AT BEDSIDE THIS AM. GAVE HER CM PHONE # TO HELP MAKE ARRANGEMENTS FOR SNF PLACEMENT.
[2018-12-01 04:39] VITALS: BP 142/89
--- NOTE | 2018-12-01 06:07 | NUR ---
PATIENT IS PROGRESSING IN CARE. VITAL SIGNS STABLE WITH PATIENT NOT COMPLAINING, NOR NURSE PERCEIVING, ANY PAIN OR NAUSEA. PATIENT REMAINS ORIENTED TO SELF AND AT TIMES PLACE, AND IS PLEASANTLY CONFUSED. NURSE MDE SURE TO ROUND FREQUENTLY ON PATIENT TO MAINTAIN SAFETY AND CHECK FOR URINARY INCONTINENCE. PATIENT WAS FREQUENTLY INCONTINENT AND REQUIRED SKIN CARE OFTEN. SHE IS EXPECTED TO POSSIBLY DISCHARGE TODAY. CONTINUE PLAN OF CARE.
[2018-12-01 08:15] VITALS: BP 141/92
[2018-12-01 11:54] VITALS: BP 140/96
--- NOTE | 2018-12-01 13:27 | NUR ---
ON-GOING ASSESSMENT: CM REVIEWED CHART AND MET WITH PATIENT AT THE BEDSIDE. PT IS AGREEABLE TO GO TO [facility]. CM NOTIFIED JOSE LINDSEYSON AT [facility] THAT WE HAVE ORDERS FOR TODAY AND FAXED THEM OVER TO [facility]. CM CONFIRMED THEY RECEIVED THEM. BEDSIDE RN GIVEN THE NUMBER FOR REPORT. TRANSPORATION WAS ARRANGED FOR 2PM PICKUP, PATIENT, BEDSIDE RN, AND PATIENTS DAUGHTER ARE AWARE. CHART COPY WAS ORDERED. PT REPORTS NO FURTHER NEEDS FROM CM AT THIS TIME.
--- NOTE | 2018-12-01 14:26 | NUR ---
FDALL PREC IN PLACE..NOT IMPULSIVE..UP WITH ASSIST OF ONE WALKER/GAUIT BELT
== END 2018-12-01 14:29 | DRG 640 ==
LOC: ER 08:25 → 3W 10:38 → EROBS 10:38 → 3W 15:43
PROVIDERS: Emergency Medicine; Nurse Practitioner Family; ADMIT Hospitalist
DX: E87.6 Hypokalemia (principal); E43 Unspecified severe protein-calorie malnutrition; Z68.1 Body mass index [BMI] 19.9 or less, adult; R53.1 Weakness; E83.42 Hypomagnesemia; I10 Essential (primary) hypertension; E03.9 Hypothyroidism, unspecified; K21.9 Gastro-esophageal reflux disease without esophagitis; E78.5 Hyperlipidemia, unspecified; J44.9 Chronic obstructive pulmonary disease, unspecified; F03.90 Unspecified dementia, unspecified severity, without behavioral disturbance, psychotic disturbance, mood disturbance, and anxiety; D64.9 Anemia, unspecified; Z87.891 Personal history of nicotine dependence; Z79.82 Long term (current) use of aspirin; Z79.899 Other long term (current) drug therapy
CPT/HCPCS: 10080; 10879